=== PATIENT | male | born 1935 | race Caucasian/White ===

== ENCOUNTER 2020-11-30 12:48 | Inpatient (IN) | payer MEDICARE ==
[2020-11-30] MEDS ORDERED: ACETAMINOPHEN 1000 MG/100 ML VIAL (NON FORMULARY) IVPB ONE (13:39)
[2020-11-30] MEDS ORDERED: SODIUM CHLORIDE 0.9% 250 ML INFUS.BAG IV ONE (13:39)
[2020-11-30] MEDS ORDERED: DEXAMETHASONE SOD PHOSPHATE 10 MG/1 ML VIAL IVPUSH ONE (14:00)
[2020-11-30 14:35] LABS: BASO % 0.3 % (0-2.0); HEMATOCRIT 48.7 % (35.4-49); HEMOGLOBIN 16.1 GM/dL (11.7-16.9); LYMPH % 8.5 % (8-40); MCH 25.5 pg (25.7-33.7); MCHC 33.1 g/dl (32.0-35.9); MEAN CELL VOLUME 77.2 fl (80-96); MEAN PLT VOLUME 9.2 fl (7.5-11.1); MONO % 14.9 % (3.8-10.2); NEUT % 76.3 % (42.8-82.8); PLATELET COUNT 181 K/MM3 (134-434); RBC 6.31 M/mm3 (4.00-5.60); RDW 18.3 % (11.9-15.9); WHITE BLOOD COUNT 11.7 K/mm3 (4.0-10.0)
[2020-11-30 14:41] LABS: INR 1.23 (0.83-1.09)
[2020-11-30 14:44] LABS: ACTIVATED PTT 28.2 SECONDS (25.2-36.5)
[2020-11-30 14:52] LABS: POTASSIUM 4.1 mmol/L (3.5-5.1)
[2020-11-30 14:55] LABS: ALBUMIN 3.4 g/dl (3.4-5.0); BLOOD UREA NITROGEN 25.4 mg/dL (7-18); CALCIUM 8.9 mg/dL (8.5-10.1)
[2020-11-30 14:58] LABS: BILIRUBIN,DIRECT 0.3 mg/dL (0.0-0.2); CREATININE 1.2 mg/dL (0.55-1.3)
[2020-11-30 15:00] LABS: BILIRUBIN,TOTAL 0.8 mg/dL (0.2-1); TOT PROT 7.6 g/dl (6.4-8.2)
[2020-11-30 15:23] LABS: ARTERIAL BLD GAS O2 SATURATION 94.3 mmHg (95-98); ARTERIAL BLOOD GAS BASE EXCESS 1.8 mmol/L (-2-2); ARTERIAL BLOOD GAS PO2 68.4 mmHg (80-100); ARTERIAL BLOOD GAS pH 7.438 (7.350-7.450)
[2020-11-30] MEDS ORDERED: ASPIRIN 81 MG CHEWABLE TABLETS PO ONE (15:24)
[2020-11-30 15:41] LABS: EPI CELLS 25 /uL (0-25.1); HYALINE CASTS 2 /uL (0-3.1); URINE APPEARANCE CLEAR; URINE BACTERIA 129 /uL (0-1359); URINE BILIRUBIN NEGATIVE (NEGATIVE); URINE COLOR YELLOW; URINE GLUCOSE (UA) NEGATIVE (NEGATIVE); URINE KETONE NEGATIVE (NEGATIVE); URINE LEUK ESTERASE NEGATIVE (NEGATIVE); URINE NITRITE NEGATIVE (NEGATIVE); URINE PROTEIN 2+ (NEGATIVE); URINE RBC 16 /uL (0-23.9); URINE UROBILINOGEN 0.2 mg/dL (0.2-1.0); URINE WBC 36 /uL (0-25.8)
[2020-11-30] MEDS ORDERED: ENOXAPARIN NA (PORCINE) 80 MG/0.8 ML DISP.SYRIN SQ ONE (15:43)
[2020-11-30] MEDS ORDERED: ACETAMINOPHEN INJECTION 100 ML IVPB ONE (16:20)
[2020-11-30] MEDS ORDERED: ASPIRIN 81 MG CHEWABLE TABLETS ONE (16:20)
[2020-11-30] MEDS ORDERED: DEXAMETHASONE 4 MG TABLET (FP) ONE (16:20)
[2020-11-30] MEDS ORDERED: ENOXAPARIN NA (PORCINE) 60 MG/0.6 ML DISP.SYRIN SQ ONE (16:21)
[2020-11-30] MEDS ORDERED: ENOXAPARIN NA (PORCINE) 30 MG/0.3 ML DISP.SYRIN SQ ONE (16:21)
[2020-11-30] MEDS ORDERED: DEXAMETHASONE SOD PHOSPHATE 4 MG/1 ML VIAL ONE (16:34)
[2020-12-01 03:25] VITALS: BMI 38.2
[2020-12-01] MEDS ORDERED: ACETAMINOPHEN 1000 MG/100 ML VIAL (NON FORMULARY) IVPB PRN (06:07)
[2020-12-01] MEDS: INSULIN SLIDING SCALE (NOVOLOG) 1 VIAL SQ SCH ×4 (06:44→21:57)
[2020-12-01] MEDS ORDERED: DEXTROSE 5%-WATER - 50 ML IVPB ONE (09:22)
[2020-12-01] MEDS ORDERED: cefTRIAXone SODIUM 1 GM VIAL ONE (09:22)
[2020-12-01] MEDS ORDERED: SODIUM CHLORIDE 1,000 ML IV SCH (10:00)
[2020-12-01] MEDS ORDERED: METOPROLOL TARTRATE 25 MG TABLET (FP) PO SCH (10:00)
[2020-12-01] MEDS ORDERED: CARVEDILOL 6.25 MG TABLET (FP) PO SCH (10:00)
[2020-12-01] MEDS ORDERED: AZITHROMYCIN IVPB 500 MG/250 ML BAG IVPB ONE (10:00)
[2020-12-01] MEDS: ZINC SULFATE 220 MG CAPSULE (FP) PO SCH (10:04)
[2020-12-01] MEDS: ASPIRIN 81 MG CHEWABLE TABLETS PO SCH (10:04)
[2020-12-01] MEDS: ENALAPRIL MALEATE 10 MG TABLET PO SCH (10:04)
[2020-12-01] MEDS: ENOXAPARIN NA (PORCINE) 100 MG/1 ML DISP.SYRIN SQ SCH ×2 (10:04→22:00)
[2020-12-01] MEDS: DEXAMETHASONE SOD PHOSPHATE 4 MG/1 ML VIAL IVPUSH SCH (10:04)
[2020-12-01] MEDS: CEFTRIAXONE 1 GM in DEXTROSE 5%-WATER - 50 ML IVPB SCH (10:05)
[2020-12-01] MEDS: ASCORBIC ACID 500 MG TABLET (FP) PO SCH ×2 (10:05→21:59)
[2020-12-01] MEDS: CHOLECALCIFEROL (VIT D3) 1,000 UNIT (25 MCG) TABLET PO SCH (10:05)
[2020-12-01 10:42] LABS: BASO % 0.3 % (0-2.0); HEMATOCRIT 51.9 % (35.4-49); HEMOGLOBIN 17.3 GM/dL (11.7-16.9); LYMPH % 5.4 % (8-40); MCH 25.8 pg (25.7-33.7); MCHC 33.4 g/dl (32.0-35.9); MEAN CELL VOLUME 77.1 fl (80-96); MEAN PLT VOLUME 8.8 fl (7.5-11.1); MONO % 16.2 % (3.8-10.2); NEUT % 78.1 % (42.8-82.8); PLATELET COUNT 211 K/MM3 (134-434); RBC 6.73 M/mm3 (4.00-5.60); RDW 18.2 % (11.9-15.9); WHITE BLOOD COUNT 13.3 K/mm3 (4.0-10.0)
[2020-12-01 11:02] LABS: POTASSIUM 4.5 mmol/L (3.5-5.1)
[2020-12-01 11:04] LABS: BLOOD UREA NITROGEN 28.3 mg/dL (7-18); CALCIUM 9.2 mg/dL (8.5-10.1)
[2020-12-01 11:05] LABS: ALBUMIN 3.4 g/dl (3.4-5.0); MAGNESIUM 2.4 mg/dL (1.8-2.4)
[2020-12-01 11:08] LABS: CREATININE 1.2 mg/dL (0.55-1.3); PHOSPHOROUS 2.3 mg/dL (2.5-4.9)
[2020-12-01 11:09] LABS: BILIRUBIN,TOTAL 0.9 mg/dL (0.2-1); TOT PROT 8.1 g/dl (6.4-8.2)
[2020-12-01] MEDS ORDERED: PT OWN MED DRAWER 7, Y5N ONE (11:39)
[2020-12-01] MEDS ORDERED: REMDESIVIR 200 MG in SODIUM CHLORIDE 210 ML IVPB ONE (12:00)
[2020-12-01] MEDS: METOPROLOL TARTRATE 50 MG TABLET (FP) PO SCH (22:00)
[2020-12-01] MEDS: ATORVASTATIN CA 80 MG TABLET (FP) PO SCH (22:00)
[2020-12-01] MEDS: INSULIN (LEVEMIR) 100 UNITS/ML UNITS SQ SCH (22:12)
[2020-12-02] MEDS ORDERED: SODIUM CHLORIDE 1,000 ML IV SCH (04:28)
[2020-12-02 07:59] LABS: BASO % 0.2 % (0-2.0); HEMATOCRIT 47.3 % (35.4-49); HEMOGLOBIN 15.8 GM/dL (11.7-16.9); LYMPH % 9.1 % (8-40); MCH 25.8 pg (25.7-33.7); MCHC 33.4 g/dl (32.0-35.9); MEAN CELL VOLUME 77.3 fl (80-96); MEAN PLT VOLUME 8.9 fl (7.5-11.1); MONO % 16.8 % (3.8-10.2); NEUT % 73.9 % (42.8-82.8); PLATELET COUNT 190 K/MM3 (134-434); RBC 6.12 M/mm3 (4.00-5.60); RDW 18.4 % (11.9-15.9); WHITE BLOOD COUNT 10.7 K/mm3 (4.0-10.0)
[2020-12-02 08:02] LABS: INR 1.28 (0.83-1.09); PROTHROMBIN TIME (PATIENT) 15.6 SEC (9.7-13.0)
[2020-12-02 08:22] LABS: POTASSIUM 4.5 mmol/L (3.5-5.1)
[2020-12-02 08:24] LABS: ALBUMIN 2.8 g/dl (3.4-5.0); BLOOD UREA NITROGEN 33.7 mg/dL (7-18); CALCIUM 8.3 mg/dL (8.5-10.1)
[2020-12-02] MEDS: INSULIN SLIDING SCALE (NOVOLOG) 1 VIAL SQ SCH ×4 (08:24→21:23)
[2020-12-02 08:25] LABS: MAGNESIUM 2.6 mg/dL (1.8-2.4)
[2020-12-02 08:29] LABS: TOT PROT 6.7 g/dl (6.4-8.2)
[2020-12-02 08:33] LABS: BILIRUBIN,TOTAL 0.8 mg/dL (0.2-1)
[2020-12-02] MEDS ORDERED: FUROSEMIDE 40 MG/4 ML INJECTABLE VIAL IVPUSH ONE (08:47)
[2020-12-02] MEDS ORDERED: cefTRIAXone SODIUM 1 GM VIAL ONE (08:57)
[2020-12-02] MEDS ORDERED: DEXTROSE 5%-WATER - 50 ML IVPB ONE (08:57)
[2020-12-02] MEDS: CEFTRIAXONE 1 GM in DEXTROSE 5%-WATER - 50 ML IVPB SCH (09:36)
[2020-12-02] MEDS: ENOXAPARIN NA (PORCINE) 100 MG/1 ML DISP.SYRIN SQ SCH ×2 (09:36→21:24)
[2020-12-02] MEDS: DEXAMETHASONE SOD PHOSPHATE 4 MG/1 ML VIAL IVPUSH SCH (09:37)
[2020-12-02] MEDS: CHOLECALCIFEROL (VIT D3) 1,000 UNIT (25 MCG) TABLET PO SCH (09:37)
[2020-12-02] MEDS: ASCORBIC ACID 500 MG TABLET (FP) PO SCH ×2 (09:38→21:22)
[2020-12-02] MEDS: ZINC SULFATE 220 MG CAPSULE (FP) PO SCH (09:38)
[2020-12-02] MEDS: METOPROLOL TARTRATE 50 MG TABLET (FP) PO SCH ×2 (09:38→21:22)
[2020-12-02] MEDS: ASPIRIN 81 MG CHEWABLE TABLETS PO SCH (09:38)
[2020-12-02] MEDS: ENALAPRIL MALEATE 10 MG TABLET PO SCH (09:38)
[2020-12-02] MEDS: AZITHROMYCIN IVPB 250 MG in DEXTROSE 5%-WATER - 250 ML IVPB SCH (10:03)
[2020-12-02] MEDS: REMDESIVIR 100 MG in SODIUM CHLORIDE 230 ML IVPB SCH (12:02)
[2020-12-02] MEDS ORDERED: PT OWN MED DRAWER 7, Y5N ONE (14:51)
[2020-12-02] MEDS: ATORVASTATIN CA 80 MG TABLET (FP) PO SCH (21:21)
[2020-12-02] MEDS: INSULIN (LEVEMIR) 100 UNITS/ML UNITS SQ SCH (21:22)
[2020-12-02] MEDS ORDERED: MELATONIN 5 MG TABLETS PO PRN (22:00)
[2020-12-03] MEDS: INSULIN SLIDING SCALE (NOVOLOG) 1 VIAL SQ SCH ×4 (06:19→21:13)
[2020-12-03 07:07] LABS: BASO % 0.2 % (0-2.0); HEMATOCRIT 48.6 % (35.4-49); HEMOGLOBIN 16.3 GM/dL (11.7-16.9); LYMPH % 10.3 % (8-40); MCH 25.8 pg (25.7-33.7); MCHC 33.6 g/dl (32.0-35.9); MEAN CELL VOLUME 76.9 fl (80-96); MEAN PLT VOLUME 8.8 fl (7.5-11.1); MONO % 14.6 % (3.8-10.2); NEUT % 74.9 % (42.8-82.8); PLATELET COUNT 203 K/MM3 (134-434); RDW 18.7 % (11.9-15.9); WHITE BLOOD COUNT 9.6 K/mm3 (4.0-10.0)
[2020-12-03 07:26] LABS: POTASSIUM 4.4 mmol/L (3.5-5.1)
[2020-12-03 07:32] LABS: BLOOD UREA NITROGEN 41.2 mg/dL (7-18)
[2020-12-03 07:33] LABS: ALBUMIN 2.7 g/dl (3.4-5.0); CALCIUM 8.2 mg/dL (8.5-10.1)
[2020-12-03 07:34] LABS: MAGNESIUM 2.7 mg/dL (1.8-2.4)
[2020-12-03 07:37] LABS: BILIRUBIN,TOTAL 0.7 mg/dL (0.2-1); TOT PROT 6.6 g/dl (6.4-8.2)
[2020-12-03 08:24] LABS: RBC 6.31 M/mm3 (4.00-5.60)
[2020-12-03] MEDS ORDERED: DEXTROSE 5%-WATER - 50 ML IVPB ONE (08:39)
[2020-12-03] MEDS ORDERED: cefTRIAXone SODIUM 1 GM VIAL ONE (08:39)
[2020-12-03] MEDS: ENOXAPARIN NA (PORCINE) 100 MG/1 ML DISP.SYRIN SQ SCH ×2 (09:42→21:12)
[2020-12-03] MEDS: ASPIRIN 81 MG CHEWABLE TABLETS PO SCH (09:43)
[2020-12-03] MEDS: CEFTRIAXONE 1 GM in DEXTROSE 5%-WATER - 50 ML IVPB SCH (09:43)
[2020-12-03] MEDS: METOPROLOL TARTRATE 50 MG TABLET (FP) PO SCH ×2 (09:44→21:11)
[2020-12-03] MEDS: AZITHROMYCIN IVPB 250 MG in DEXTROSE 5%-WATER - 250 ML IVPB SCH (09:44)
[2020-12-03] MEDS: ZINC SULFATE 220 MG CAPSULE (FP) PO SCH (09:44)
[2020-12-03] MEDS: ENALAPRIL MALEATE 10 MG TABLET PO SCH (09:44)
[2020-12-03] MEDS: DEXAMETHASONE SOD PHOSPHATE 4 MG/1 ML VIAL IVPUSH SCH (09:44)
[2020-12-03] MEDS: ASCORBIC ACID 500 MG TABLET (FP) PO SCH ×2 (09:44→21:14)
[2020-12-03] MEDS: CHOLECALCIFEROL (VIT D3) 1,000 UNIT (25 MCG) TABLET PO SCH (09:44)
[2020-12-03] MEDS: REMDESIVIR 100 MG in SODIUM CHLORIDE 230 ML IVPB SCH (11:17)
[2020-12-03] MEDS: INSULIN (LEVEMIR) 100 UNITS/ML UNITS SQ SCH (21:09)
[2020-12-03] MEDS: ATORVASTATIN CA 80 MG TABLET (FP) PO SCH (21:11)
[2020-12-03] MEDS: MELATONIN 5 MG TABLETS PO SCH (21:12)
[2020-12-03] MEDS: FAMOTIDINE 20 MG/50 ML IVPB 20 MG/50 ML MG IVPB SCH (21:14)
[2020-12-04 00:23] LABS: ARTERIAL BLD GAS O2 SATURATION 88.6 mmHg (95-98); ARTERIAL BLOOD GAS BASE EXCESS 1.2 mmol/L (-2-2); ARTERIAL BLOOD GAS PO2 54.1 mmHg (80-100); ARTERIAL BLOOD GAS pH 7.416 (7.350-7.450)
[2020-12-04 00:25] LABS: ALLENS TEST POSITIVE
[2020-12-04 00:26] LABS: VENT RATE 14
[2020-12-04] MEDS: INSULIN SLIDING SCALE (NOVOLOG) 1 VIAL SQ SCH ×4 (07:02→22:29)
[2020-12-04 08:13] LABS: BASO % 0.2 % (0-2.0); HEMATOCRIT 46.8 % (35.4-49); HEMOGLOBIN 15.4 GM/dL (11.7-16.9); LYMPH % 11.6 % (8-40); MCH 25.7 pg (25.7-33.7); MCHC 32.8 g/dl (32.0-35.9); MEAN CELL VOLUME 78.3 fl (80-96); MEAN PLT VOLUME 8.7 fl (7.5-11.1); MONO % 13.4 % (3.8-10.2); NEUT % 74.8 % (42.8-82.8); PLATELET COUNT 204 K/MM3 (134-434); RBC 5.99 M/mm3 (4.00-5.60); RDW 18.3 % (11.9-15.9); WHITE BLOOD COUNT 10.7 K/mm3 (4.0-10.0)
[2020-12-04 08:24] LABS: POTASSIUM 4.5 mmol/L (3.5-5.1)
[2020-12-04 08:29] LABS: ALBUMIN 2.6 g/dl (3.4-5.0); BLOOD UREA NITROGEN 41.4 mg/dL (7-18)
[2020-12-04 08:30] LABS: CALCIUM 8.2 mg/dL (8.5-10.1); MAGNESIUM 2.6 mg/dL (1.8-2.4)
[2020-12-04 08:32] LABS: CREATININE 0.9 mg/dL (0.55-1.3)
[2020-12-04 08:33] LABS: BILIRUBIN,TOTAL 0.8 mg/dL (0.2-1); TOT PROT 6.4 g/dl (6.4-8.2)
[2020-12-04] MEDS ORDERED: DEXTROSE 5%-WATER - 50 ML IVPB ONE (08:41)
[2020-12-04] MEDS ORDERED: cefTRIAXone SODIUM 1 GM VIAL ONE (08:41)
[2020-12-04] MEDS: DEXAMETHASONE SOD PHOSPHATE 4 MG/1 ML VIAL IVPUSH SCH (10:04)
[2020-12-04] MEDS: ASPIRIN 81 MG CHEWABLE TABLETS PO SCH (10:04)
[2020-12-04] MEDS: METOPROLOL TARTRATE 50 MG TABLET (FP) PO SCH ×2 (10:05→22:25)
[2020-12-04] MEDS: ENOXAPARIN NA (PORCINE) 100 MG/1 ML DISP.SYRIN SQ SCH ×2 (10:05→22:26)
[2020-12-04] MEDS: ZINC SULFATE 220 MG CAPSULE (FP) PO SCH (10:05)
[2020-12-04] MEDS: FAMOTIDINE 20 MG/50 ML IVPB 20 MG/50 ML MG IVPB SCH ×2 (10:05→22:26)
[2020-12-04] MEDS: ENALAPRIL MALEATE 10 MG TABLET PO SCH (10:06)
[2020-12-04] MEDS: CHOLECALCIFEROL (VIT D3) 1,000 UNIT (25 MCG) TABLET PO SCH (10:06)
[2020-12-04] MEDS: CEFTRIAXONE 1 GM in DEXTROSE 5%-WATER - 50 ML IVPB SCH (10:06)
[2020-12-04] MEDS: ASCORBIC ACID 500 MG TABLET (FP) PO SCH ×2 (10:06→22:26)
[2020-12-04] MEDS: REMDESIVIR 100 MG in SODIUM CHLORIDE 230 ML IVPB SCH (12:50)
[2020-12-04 19:14] LABS: ALLENS TEST POSITIVE; ARTERIAL BLD GAS O2 SATURATION 85.9 mmHg (95-98); ARTERIAL BLOOD GAS BASE EXCESS 1.8 mmol/L (-2-2); ARTERIAL BLOOD GAS PO2 48.4 mmHg (80-100); ARTERIAL BLOOD GAS pH 7.445 (7.350-7.450)
[2020-12-04] MEDS: INSULIN (LEVEMIR) 100 UNITS/ML UNITS SQ SCH (22:24)
[2020-12-04] MEDS: ATORVASTATIN CA 80 MG TABLET (FP) PO SCH (22:25)
[2020-12-04] MEDS: MELATONIN 5 MG TABLETS PO SCH (22:26)
[2020-12-04] MEDS: MORPHINE SULFATE 2 MG/ML VIAL IVPUSH PRN (22:26)
[2020-12-05] MEDS: INSULIN SLIDING SCALE (NOVOLOG) 1 VIAL SQ SCH ×4 (06:49→22:16)
[2020-12-05 08:34] LABS: BASO % 0.2 % (0-2.0); HEMATOCRIT 47.6 % (35.4-49); HEMOGLOBIN 15.6 GM/dL (11.7-16.9); MCH 25.5 pg (25.7-33.7); MCHC 32.8 g/dl (32.0-35.9); MEAN CELL VOLUME 77.6 fl (80-96); MEAN PLT VOLUME 8.9 fl (7.5-11.1); MONO % 12.7 % (3.8-10.2); NEUT % 78.1 % (42.8-82.8); PLATELET COUNT 218 K/MM3 (134-434); RBC 6.13 M/mm3 (4.00-5.60); RDW 18.3 % (11.9-15.9); WHITE BLOOD COUNT 14.9 K/mm3 (4.0-10.0)
[2020-12-05 08:47] LABS: POTASSIUM 4.4 mmol/L (3.5-5.1)
[2020-12-05 08:59] LABS: CALCIUM 8.5 mg/dL (8.5-10.1)
[2020-12-05 09:00] LABS: ALBUMIN 2.7 g/dl (3.4-5.0); MAGNESIUM 2.5 mg/dL (1.8-2.4)
[2020-12-05 09:03] LABS: CREATININE 0.9 mg/dL (0.55-1.3)
[2020-12-05 09:05] LABS: BILIRUBIN,TOTAL 0.8 mg/dL (0.2-1); TOT PROT 6.5 g/dl (6.4-8.2)
[2020-12-05] MEDS ORDERED: cefTRIAXone SODIUM 1 GM VIAL ONE (09:38)
[2020-12-05] MEDS ORDERED: DEXTROSE 5%-WATER - 50 ML IVPB ONE (09:39)
[2020-12-05] MEDS: DEXAMETHASONE SOD PHOSPHATE 4 MG/1 ML VIAL IVPUSH SCH (09:55)
[2020-12-05] MEDS: ASPIRIN 81 MG CHEWABLE TABLETS PO SCH (11:10)
[2020-12-05] MEDS: METOPROLOL TARTRATE 50 MG TABLET (FP) PO SCH ×2 (11:13→22:04)
[2020-12-05] MEDS: ENOXAPARIN NA (PORCINE) 100 MG/1 ML DISP.SYRIN SQ SCH ×2 (11:13→22:04)
[2020-12-05] MEDS: CEFTRIAXONE 1 GM in DEXTROSE 5%-WATER - 50 ML IVPB SCH (11:15)
[2020-12-05] MEDS: FAMOTIDINE 20 MG/50 ML IVPB 20 MG/50 ML MG IVPB SCH ×2 (11:15→22:05)
[2020-12-05] MEDS: ZINC SULFATE 220 MG CAPSULE (FP) PO SCH (11:15)
[2020-12-05] MEDS: ENALAPRIL MALEATE 10 MG TABLET PO SCH (11:16)
[2020-12-05] MEDS: CHOLECALCIFEROL (VIT D3) 1,000 UNIT (25 MCG) TABLET PO SCH (11:16)
[2020-12-05] MEDS: ASCORBIC ACID 500 MG TABLET (FP) PO SCH ×2 (11:16→22:02)
[2020-12-05] MEDS: REMDESIVIR 100 MG in SODIUM CHLORIDE 230 ML IVPB SCH (12:59)
[2020-12-05] MEDS ORDERED: INSULIN (NOVOLOG) ASPART 100 UNITS/ML 10ML VIAL ONE (16:50)
[2020-12-05] MEDS: INSULIN (LEVEMIR) 100 UNITS/ML UNITS SQ SCH (22:03)
[2020-12-05] MEDS: ATORVASTATIN CA 80 MG TABLET (FP) PO SCH (22:04)
[2020-12-05] MEDS: MELATONIN 5 MG TABLETS PO SCH (22:04)
[2020-12-06] MEDS: INSULIN SLIDING SCALE (NOVOLOG) 1 VIAL SQ SCH ×4 (06:19→23:08)
[2020-12-06] MEDS: MORPHINE SULFATE 2 MG/ML VIAL IVPUSH PRN (06:21)
[2020-12-06 07:51] LABS: BASO % 0.3 % (0-2.0); EOS % 0.1 % (0-4.5); HEMATOCRIT 50.9 % (35.4-49); HEMOGLOBIN 16.8 GM/dL (11.7-16.9); LYMPH % 10.5 % (8-40); MCH 25.6 pg (25.7-33.7); MEAN CELL VOLUME 77.7 fl (80-96); MEAN PLT VOLUME 8.9 fl (7.5-11.1); MONO % 10.1 % (3.8-10.2); PLATELET COUNT 219 K/MM3 (134-434); RBC 6.55 M/mm3 (4.00-5.60); RDW 18.5 % (11.9-15.9); WHITE BLOOD COUNT 20.9 K/mm3 (4.0-10.0)
[2020-12-06 08:19] LABS: CHLORIDE 96 mmol/L (98-107); SODIUM 126 mmol/L (136-145)
[2020-12-06 08:24] LABS: ALBUMIN 2.5 g/dl (3.4-5.0); BLOOD UREA NITROGEN 30.3 mg/dL (7-18); CALCIUM 8.3 mg/dL (8.5-10.1); CO2 28 mmol/L (21-32); GLUCOSE,RANDOM 60 mg/dL (74-106); MAGNESIUM 2.6 mg/dL (1.8-2.4)
[2020-12-06 08:27] LABS: CREATININE 0.9 mg/dL (0.55-1.3)
[2020-12-06 08:29] LABS: BILIRUBIN,TOTAL 1.6 mg/dL (0.2-1); TOT PROT 7.7 g/dl (6.4-8.2)
[2020-12-06 08:30] LABS: ALK PHOS 98 U/L (45-117)
[2020-12-06 09:08] LABS: ANION GAP 2 MMOL/L (8-16); LDH > 1000 U/L (87-246); SGOT/AST 126 U/L (15-37); SGPT/ALT 46 U/L (13-61)
[2020-12-06 09:26] LABS: POTASSIUM 9.8 mmol/L (3.5-5.1)
[2020-12-06] MEDS ORDERED: cefTRIAXone SODIUM 1 GM VIAL ONE (09:44)
[2020-12-06] MEDS ORDERED: DEXTROSE 5%-WATER - 50 ML IVPB ONE (09:44)
[2020-12-06] MEDS: DEXAMETHASONE SOD PHOSPHATE 4 MG/1 ML VIAL IVPUSH SCH (09:53)
[2020-12-06] MEDS: CEFTRIAXONE 1 GM in DEXTROSE 5%-WATER - 50 ML IVPB SCH (09:54)
[2020-12-06] MEDS: METOPROLOL TARTRATE 50 MG TABLET (FP) PO SCH ×2 (09:55→22:43)
[2020-12-06] MEDS: FAMOTIDINE 20 MG/50 ML IVPB 20 MG/50 ML MG IVPB SCH ×2 (09:55→22:43)
[2020-12-06] MEDS: ZINC SULFATE 220 MG CAPSULE (FP) PO SCH (09:55)
[2020-12-06] MEDS: ASPIRIN 81 MG CHEWABLE TABLETS PO SCH (09:56)
[2020-12-06] MEDS: ASCORBIC ACID 500 MG TABLET (FP) PO SCH ×2 (09:56→22:43)
[2020-12-06] MEDS: ENOXAPARIN NA (PORCINE) 100 MG/1 ML DISP.SYRIN SQ SCH ×2 (09:56→22:43)
[2020-12-06] MEDS: CHOLECALCIFEROL (VIT D3) 1,000 UNIT (25 MCG) TABLET PO SCH (09:56)
[2020-12-06] MEDS: ENALAPRIL MALEATE 10 MG TABLET PO SCH (09:56)
[2020-12-06 10:42] LABS: ANISOCYTOSIS 0; MACROCYTOSIS 0; PLATELET ESTIMATE NORMAL
[2020-12-06 12:48] LABS: POTASSIUM 4.3 mmol/L (3.5-5.1)
[2020-12-06 12:50] LABS: BLOOD UREA NITROGEN 30.3 mg/dL (7-18); CALCIUM 8.2 mg/dL (8.5-10.1)
[2020-12-06 12:53] LABS: CREATININE 0.8 mg/dL (0.55-1.3)
[2020-12-06] MEDS ORDERED: TOCILIZUMAB (ACTEMRA) 200 MG/10 ML VIAL IVPB ONE (15:43)
[2020-12-06] MEDS ORDERED: TOCILIZUMAB 800 MG in SODIUM CHLORIDE 60 ML IVPB ONE (17:00)
[2020-12-06] MEDS: ATORVASTATIN CA 80 MG TABLET (FP) PO SCH (22:43)
[2020-12-06] MEDS: INSULIN (LEVEMIR) 100 UNITS/ML UNITS SQ SCH (22:43)
[2020-12-06] MEDS: MELATONIN 5 MG TABLETS PO SCH (22:43)
[2020-12-07 00:50] LABS: ARTERIAL BLD GAS O2 SATURATION 81.3 mmHg (95-98); ARTERIAL BLOOD GAS BASE EXCESS 1.1 mmol/L (-2-2); ARTERIAL BLOOD GAS PO2 45.8 mmHg (80-100); ARTERIAL BLOOD GAS pH 7.393 (7.350-7.450)
[2020-12-07 00:54] LABS: ALLENS TEST POSITIVE; VENT MODE S/T; VENT RATE 18
[2020-12-07] MEDS: MORPHINE SULFATE 2 MG/ML VIAL IVPUSH PRN (01:05)
[2020-12-07] MEDS: INSULIN SLIDING SCALE (NOVOLOG) 1 VIAL SQ SCH ×2 (06:54→13:00)
[2020-12-07 07:13] LABS: BASO % 0.3 % (0-2.0); EOS % 0.1 % (0-4.5); HEMATOCRIT 50.1 % (35.4-49); HEMOGLOBIN 16.6 GM/dL (11.7-16.9); LYMPH % 7.6 % (8-40); MCH 25.7 pg (25.7-33.7); MCHC 33.1 g/dl (32.0-35.9); MEAN CELL VOLUME 77.5 fl (80-96); MEAN PLT VOLUME 9.3 fl (7.5-11.1); MONO % 9.5 % (3.8-10.2); NEUT % 82.5 % (42.8-82.8); PLATELET COUNT 217 K/MM3 (134-434); RBC 6.46 M/mm3 (4.00-5.60); RDW 18.5 % (11.9-15.9); WHITE BLOOD COUNT 14.1 K/mm3 (4.0-10.0)
[2020-12-07 07:32] LABS: POTASSIUM 4.7 mmol/L (3.5-5.1)
[2020-12-07 07:34] LABS: CALCIUM 8.3 mg/dL (8.5-10.1)
[2020-12-07 07:35] LABS: ALBUMIN 2.4 g/dl (3.4-5.0); BLOOD UREA NITROGEN 35.1 mg/dL (7-18); MAGNESIUM 2.5 mg/dL (1.8-2.4)
[2020-12-07 07:39] LABS: CREATININE 0.8 mg/dL (0.55-1.3)
[2020-12-07 07:40] LABS: TOT PROT 6.5 g/dl (6.4-8.2)
[2020-12-07] MEDS ORDERED: DEXTROSE 5%-WATER - 50 ML IVPB ONE (08:56)
[2020-12-07] MEDS ORDERED: cefTRIAXone SODIUM 1 GM VIAL ONE (08:56)
[2020-12-07] MEDS: ASCORBIC ACID 500 MG TABLET (FP) PO SCH (10:24)
[2020-12-07] MEDS: CHOLECALCIFEROL (VIT D3) 1,000 UNIT (25 MCG) TABLET PO SCH (10:24)
[2020-12-07] MEDS: DEXAMETHASONE SOD PHOSPHATE 4 MG/1 ML VIAL IVPUSH SCH (10:24)
[2020-12-07] MEDS: ASPIRIN 81 MG CHEWABLE TABLETS PO SCH (10:24)
[2020-12-07] MEDS: FAMOTIDINE 20 MG/50 ML IVPB 20 MG/50 ML MG IVPB SCH (10:25)
[2020-12-07] MEDS: ZINC SULFATE 220 MG CAPSULE (FP) PO SCH (10:25)
[2020-12-07] MEDS: ENALAPRIL MALEATE 10 MG TABLET PO SCH (10:25)
[2020-12-07] MEDS: ENOXAPARIN NA (PORCINE) 100 MG/1 ML DISP.SYRIN SQ SCH (10:25)
[2020-12-07] MEDS: CEFTRIAXONE 1 GM in DEXTROSE 5%-WATER - 50 ML IVPB SCH (10:25)
[2020-12-07] MEDS: METOPROLOL TARTRATE 50 MG TABLET (FP) PO SCH (10:25)
[2020-12-07] MEDS ORDERED: METOPROLOL TARTRATE 5 MG/5 ML VIAL IVPUSH PRN (11:10)
[2020-12-07 11:49] VITALS: BP 116/43; PULSE 109; TEMP 97.8
[2020-12-07 12:48] LABS: ARTERIAL BLOOD GAS BASE EXCESS -3.3 mmol/L (-2-2)
[2020-12-07 12:49] LABS: VENT MODE ST; VENT RATE 18
[2020-12-07] MEDS ORDERED: PROPOFOL 1,000,000 MCG/100 ML VIAL ONE (12:58)
[2020-12-07] MEDS ORDERED: RAPID SEQUENCE INTUBATION KIT NR ONE (12:58)
[2020-12-07] MEDS ORDERED: VECURONIUM BROMIDE 100 MG/100 ML BAG ONE (13:27)
[2020-12-07] MEDS ORDERED: MIDAZOLAM 100 MG/100 ML MG IVPB ONE (13:31)
[2020-12-07] MEDS ORDERED: CHLORHEXIDINE GLUCONATE 4% CLEANSER FOR DECOLONIZATION TP SCH (22:00)
[2020-12-07] MEDS ORDERED: MUPIROCIN 2% TOPICAL OINTMENT FOR DECOLONIZATION NS SCH (22:00)
== END 2020-12-07 14:00 | disposition expired | DRG 137 ==
LOC: EDBD 12:48 → JER 12:48 → JERBED 16:00 → J4W 23:49 → JICU 12-07 12:55
PROVIDERS: ADMIT Internal Medicine; ATTEND Internal Medicine Pulmonary Disease
PROC: XW13325 Transfusion of Convalescent Plasma (Nonautologous) into Peripheral Vein, Percutaneous Approach, New Technology Group 5 (ICD-10-PCS; 2020-12-01)
PROC: XW033E5 Introduction of Remdesivir Anti-infective into Peripheral Vein, Percutaneous Approach, New Technology Group 5 (ICD-10-PCS; 2020-12-01)
PROC: XW033H5 Introduction of Tocilizumab into Peripheral Vein, Percutaneous Approach, New Technology Group 5 (ICD-10-PCS; 2020-12-06)
PROC: 5A1935Z Respiratory Ventilation, Less than 24 Consecutive Hours (ICD-10-PCS; principal; 2020-12-07)
PROC: 0BH17EZ Insertion of Endotracheal Airway into Trachea, Via Natural or Artificial Opening (ICD-10-PCS; 2020-12-07)
PROC: 5A09557 Assistance with Respiratory Ventilation, Greater than 96 Consecutive Hours, Continuous Positive Airway Pressure (ICD-10-PCS; 2020-12-07)
DX: U07.1 COVID-19 (principal); J96.01 Acute respiratory failure with hypoxia; I21.4 Non-ST elevation (NSTEMI) myocardial infarction; J12.82 Pneumonia due to coronavirus disease 2019; E87.1 Hypo-osmolality and hyponatremia; E87.2 Acidosis; I10 Essential (primary) hypertension; I25.10 Atherosclerotic heart disease of native coronary artery without angina pectoris; I25.2 Old myocardial infarction; Z95.1 Presence of aortocoronary bypass graft; E78.5 Hyperlipidemia, unspecified; E66.9 Obesity, unspecified; E11.9 Type 2 diabetes mellitus without complications; Z68.38 Body mass index [BMI] 38.0-38.9, adult; D72.829 Elevated white blood cell count, unspecified
CPT/HCPCS: 31500; 36415; 36430; 36600; 71045-TC-FY; 80048; 80053; 80061; 81003; 82248; 82550; 82565; 82728; 82803; 82962; 83036; 83605; 83615; 83721; 83735; 83935; 84100; 84300; 84484; 85025; 85379; 85610; 85651; 85730; 86140; 86850; 86900; 86901; 87040; 87086; 87804; 93005; 93010; 93306-TC; 94660; 99285-25; C9399; C9803; J0131; J1100; J3262; P9017; U0003